=== PATIENT | female | born 1960 | race Caucasian/White ===

== ENCOUNTER 2017-02-19 10:09 | Emergency (ER) | payer SELFPAY ==
[2017-02-19 10:35] VITALS: BP 100/80
--- NOTE | 2017-02-19 10:53 | UC ---
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---sx have mostly resolved - History of Current Complaint Chief Complaint: UCAllergicReaction Stated Complaint: ALLERGIC REACTION Time Seen by Provider: 02/19/17 10:47 Hx Obtained From: Patient ?: No Onset/Duration: Sudden Onset, Lasting Minutes - 45 Severity Initially: Moderate Severity Currently: Mild Pain Scale Used: 0-10 Numeric - 0 Location: Discrete @ - lips and throat Character: Swelling Aggrevating Factor(s): Nothing Alleviating Factor(s): Antihistamines - Related Hx Possible Reaction To: Medications - Allergies/Home Medications Allergies/Adverse Reactions: Allergies Allergy/AdvReac Type Severity Reaction Status Date / Time No Known Allergies Allergy Verified 09/27/16 07:27 Home Medications: Home Medications Multiple Vitamins W/ Minerals [Emergen-C Immune] 1 DAILY 02/19/17 [History] PMH/Surg Hx/FS Hx/Imm Hx Previously Healthy: No - connective tissue disorder Endocrine History Of: Denies: Diabetes Cardiovascular History Of: Denies: Hypertension, Pacemaker/ICD GI/ History Of: Denies: Renal Disease Cancer History Of: Denies: Breast Cancer - Surgical History Surgical History: Yes Surgery Procedure, Year, and Place: HERNIA SURGERY. MELANOMA REMOVED FROM FACE 2012 - Family History Known Family History: Positive: Cardiac Disease Negative: Hypertension, Diabetes - Social History Occupation: Employed Full-time Lives: With Family Alcohol Use: Daily Alcohol Amount: 3 GLASSES OF WINE DAILY Substance Use Type: None, Marijuana Smoking Status (MU): Former Smoker Amount Used/How Often: 1 PPD X 15 YEARS Have You Smoked in the Last Year: No When Did the Patient Quit Smoking/Using Tobacco: 15 YEARS AGO Review of Systems Constitutional: Negative Skin: Negative Eyes: Negative ENT: Negative, Other - subjective swelling lips and throat Respiratory: Negative Cardiovascular: Negative Gastrointestinal: Negative Genitourinary: Negative Motor: Negative Neurovascular: Negative Musculoskeletal: Negative Neurological: Negative Psychological: Negative All Other Systems Reviewed And Are Negative: Yes Physical Exam Triage Information Reviewed: Yes Appearance: Well-Appearing, No Pain Distress, Well-Nourished Vital Signs: Initial Vital Signs Temp 98.2 F 02/19/17 10:26 Pulse 96 02/19/17 10:26 Resp 20 02/19/17 10:26 BP 100/80 02/19/17 10:26 Pulse Ox 98 02/19/17 10:26 Vital Signs Reviewed: Yes Eye Exam: Normal Eyes: Positive: Conjunctiva Clear ENT Exam: Normal ENT: Positive: Normal ENT inspection, Hearing grossly normal, Pharynx normal, TMs normal, Other: - no evidence of swelling lips or throat, no stridor. Negative: Nasal congestion, Nasal drainage, Tonsillar swelling, Tonsillar exudate, Trismus, Muffled/hoarse voice Dental Exam: Normal Neck exam: Normal Neck: Positive: Supple, Nontender, No Lymphadenopathy Respiratory Exam: Normal Respiratory: Positive: Chest non-tender, Lungs clear, Normal breath sounds, No respiratory distress, No accessory muscle use Cardiovascular Exam: Normal Cardiovascular: Positive: RRR, No Murmur, Pulses Normal, Brisk Capillary Refill Abdominal Exam: Normal Bowel Sounds: Positive: Present Musculoskeletal Exam: Normal Musculoskeletal: Positive: Strength Intact, ROM Intact Neurological Exam: Normal Neurological: Positive: Alert Psychological Exam: Normal Skin Exam: Normal Skin: Positive: Other - no hives or rash no urticaria Allergic Reaction Course/Dx - Course Course Of Treatment: prednidone, benadrly, stop offending medications follow with pcp - Differential Dx/Diagnosis Differential Diagnosis/HQI/PQRI: Anaphylaxis, Angioedema, Local Allergic Reaction, Urticaria Provider Diagnoses: Asmita allergic rx to [place] Supplement Discharge - Discharge Plan Condition: Stable Disposition: HOME Patient Education Materials: Diphenhydramine (By mouth), General Allergic Reaction (ED) Referrals: Migel Barraza MD [Primary Care Provider] - 3 Days
[2017-02-19] MEDS ORDERED: predniSONE TAB* 20 MG PO ONE (10:54)
== END 2017-02-19 11:17 | disposition home or self-care (01) ==
LOC: UCEAST 10:09
DX: T78.49XA Other allergy, initial encounter (principal); Z87.891 Personal history of nicotine dependence
CPT/HCPCS: 99212; G0463; J7512